=== PATIENT | female | born 1955 | race Caucasian/White ===

== ENCOUNTER 2021-12-14 07:34 | Outpatient (CLI) | payer MEDICARE ==
[~2021-12-14] VITALS: Ht 165.2 cm; Wt 110.8 kg
[2021-12-14 08:24] LABS: BASO # 0.1 K/mm3 (0.0-0.2); BASO % 0.8 % (0.0-2.0); EOS # 0.2 K/mm3 (0.0-0.7); EOS % 2.4 % (0.0-4.0); GRAN # 5.5 K/mm3 (1.4-6.5); GRAN % 60.4 % (42.2-75.2); HEMATOCRIT 42.6 % (37.0-47.0); HEMOGLOBIN 14.5 g/dl (12.5-16.0); LYMPH # 2.4 K/mm3 (1.2-3.4); LYMPH % 26.1 % (20.0-51.0); MEAN CELL VOLUME 90 fl (80.0-100.0); MEAN CORPUSCULAR HEMOGLOBIN 31 pg (27-31); MEAN CORPUSCULAR HGB CONC 34 g/dl (33.0-37.0); MEAN PLATELET VOLUME 10.4 fl (7.4-10.4); MONO # 0.9 K/mm3 (0.1-0.6); PLATELET COUNT 236 K/mm3 (130-400); RED BLOOD COUNT 4.71 M/mm3 (4.10-5.30); REDCELL DISTRIBUTION WIDTH-CV 12.1 % (11.5-14.5)
[2021-12-14 08:39] LABS: CALCIUM 9.6 mg/dL (8.4-10.2); CREATININE, serum 1.04 mg/dL (0.57-1.11); POTASSIUM 4.3 mmol/L (3.5-4.5); PROTHROMBIN TIME 11.9 SECONDS (9.7-12.8)
[2021-12-14 08:58] VITALS: BP 199/97; PULSE 71; TEMP 98.4
[2021-12-14] MEDS ORDERED: CELEXA 20MG20 MG/TAB PO (08:59)
[2021-12-14] MEDS ORDERED: COZAAR 50MG50 MG/TAB PO (09:00)
[2021-12-14] MEDS ORDERED: SYNTHROID0.2 MG/TAB PO (09:00)
[2021-12-14] MEDS ORDERED: LASIX 40MG TABL40 MG PO (09:00)
[2021-12-14] MEDS ORDERED: NEXIUM 40MG40 MG PO (09:01)
[2021-12-14] MEDS ORDERED: TUSS PO (09:01)
[2021-12-14] MEDS ORDERED: ASPIRIN 32325 MG/TAB PO (09:02)
[2021-12-14] MEDS ORDERED: [UNRECOGNIZED DRUG - OTHER] PO (09:05)
[2021-12-14] MEDS ORDERED: KETO PO (09:05)
[2021-12-14] MEDS ORDERED: [UNRECOGNIZED DRUG - OTHER] PO (09:06)
[2021-12-14 09:40] VITALS: BP 193/91; PULSE 80
[2021-12-14 10:00] VITALS: BP 173/91; PULSE 78
[2021-12-14 10:15] VITALS: BP 161/82; PULSE 76
[2021-12-14 10:30] VITALS: BP 158/94; PULSE 75
--- NOTE | 2021-12-14 10:40 | NUR ---
Pt states she does not want final post procedure BP run at 1045, stating the cuff tightening has caused a migraine BORREGO for her due to tension. She will continue to monitor BPs at home, and states that elvated pressures today are due to her heart murmur and the tension from automatic monitor. Pt is alert, c/o beginnings of migraine with sinus pressure, exacerbated by oxygen mask used during procedure. She states she feels fine otherwise and is ready to discharge.
--- NOTE | 2021-12-14 10:45 | NUR ---
DC instructions were reviewed with pt and , both expressed understanding. Pt was steady on feet in room. She has tolerated PO fluids without issue. IV DC'd, site wrapped with coban. Pt was assisted out to 's car by wheelchair with belongings.
== END 2021-12-14 10:45 | disposition home or self-care (01) ==
LOC: COL.RAD 07:34
PROVIDERS: Internal Medicine Cardiovascular Disease
DX: I34.0 Nonrheumatic mitral (valve) insufficiency (principal); Q21.1 Atrial septal defect; I51.7 Cardiomegaly
CPT/HCPCS: J2704; J7120